=== PATIENT | female | born 1990 | race Two or more races ===

== ENCOUNTER 2021-02-18 21:52 | Inpatient (IN) | payer OTHER ==
[~2021-02-18] VITALS: Ht 154.9 cm; Wt 63.5 kg
--- NOTE | 2021-02-18 22:17 | NUR ---
PTE REFIERE DOLOR ABDOMINAL VOMITOS Y REFIERE NO PUEDE EVACUA SE DELFINO S/V YSE UBIAC EN AREA DE OBSERVACION
--- NOTE | 2021-02-18 22:50 | NUR ---
PTE ALERTA,ESTABLE Y ORIENTADA.SE EDUCA SOBRE EL TRATAMIENTO QUE SE RECIBIRA EN EL HOSPITAL Y ESTA REFIERE ENTENDER.SE LE DELFINO MUESTRAS DE [facility].
--- NOTE | 2021-02-19 01:49 | NUR ---
PACIENTE ALERTA Y ORIENTADA X3. SE ORIENTA SOBRE TX A RECIBIR Y REFIRIO ENTENDER. H/L PATENTE Y ELSA DE EDEMA Y ERITEMA. SE ADMINISTRO MEDICAMENTOS ORDENADOS POR MD. SE MANTIENE BAJO OBSERVACION POR CAMBIOS SIGNIFICATIVOS EN [place] CON BARANDAS ELEVADAS.
--- NOTE | 2021-02-19 03:01 | NUR ---
PACIENTE ALERTA Y ORIENTADA X3. BETHANY. ZEV ORIENTA A PACIENTE SOBRE TX A RECIBIR Y REFIRIO ENTENDER. ADMINISTRA MEDICAMENTO ORDENADO POR MD. SE MANTIENE BAJO OBSERVACION POR CAMBIOS SIGNIFICATIVOS.
--- NOTE | 2021-02-19 07:09 | NUR ---
SE RECIBE PTE FEMENINA DE 32 ANOS DE EDAD EN [place] CON BARANDAS ELEVADAS EN POSICION SEMI-KEENAN. PTE ALERTA, ORIENTADA EN REYES RASHID ESEFRAS. PTE AL MOMENTO NO REFIERE DOLOR. SE OBSERVA CON BUEN PATRON RESPIRATORIO. VENOPUNCION DE PTE PATENTE Y ELSA DE EDEMA Y ERITEMA. RECIBIENDO TERAPIA INTRAVENOSA 0.9NSS BAJANDO A 175 ML/HR. PENDIENTE CONSULTA CON . SE MANTIENE BAJO OBSERVACION.
[2021-02-21] MEDS ORDERED: AMOX1TAB5 PO (13:05)
[2021-02-21] MEDS ORDERED: ULTRACET PO (13:05)
[2021-02-21] MEDS ORDERED: PROTONIX40 MG PO (13:05)
== END 2021-02-21 13:46 | disposition home or self-care (01) | DRG 419 ==
LOC: ER 21:52 → SEC-K 02-19 12:30 → SURH 02-19 12:30
PROVIDERS: ADMIT Surgery; ATTEND Surgery
PROC: BF5C200 Other Imaging of Hepatobiliary System, All using Fluorescing Agent, Indocyanine Green Dye, Intraoperative (ICD-10-PCS; 2021-02-20)
PROC: 0FT44ZZ Resection of Gallbladder, Percutaneous Endoscopic Approach (ICD-10-PCS; principal; 2021-02-20 09:45)
DX: K80.12 Calculus of gallbladder with acute and chronic cholecystitis without obstruction (principal); N73.6 Female pelvic peritoneal adhesions (postinfective); R59.9 Enlarged lymph nodes, unspecified